=== PATIENT | male | born 1960 | race Caucasian/White ===

== ENCOUNTER 2020-05-05 08:04 | Outpatient (RCR) | payer OTHER, SELFPAY | END 2020-07-02 09:50 | disposition home or self-care (01) | LOC: HO.WCC 08:04 | PROVIDERS: PCP Nurse Practitioner; Visit Provider Physician Assistant | DX: L89.613 Pressure ulcer of right heel, stage 3 (principal); G62.9 Polyneuropathy, unspecified; L84 Corns and callosities; I10 Essential (primary) hypertension; Z87.891 Personal history of nicotine dependence; R60.9 Edema, unspecified | CPT/HCPCS: 11042; 97597; 99212 ==